=== PATIENT | male | born 1935 | race Two or more races ===

== ENCOUNTER 2024-05-24 10:27 | Outpatient (AMB) | payer MEDICARE, SELFPAY ==
--- NOTE | 2024-05-24 10:50 | HO.NEPHOV ---
Vital Signs 05/24/24 10:58 Height 5 ft 4 in Weight 193 lb BMI 33.1 BP 110/80 Blood Pressure Location Lt brachial Position Sitting Pulse 96 Pulse Source Pulse Oximeter Pulse Oximetry (%) 97 Oxygen Delivery Method Room Air Intake Visit Reasons: ENP:MIRNA-Weight gain-Leg swelling/ Conf Electron Beam Machine Welder Setter Required: No Accompanied by: Grand Child Allergies No Known Allergies Allergy (Verified 05/24/24 10:58) HPI Comments Details: Luis was seen in consultation for establishing renal care. He was accompanied by his grandson. He is known to have longstanding hypertension and had been on multiple medications including lisinopril. He has history of lymphedema and had been on hydrochlorothiazide and furosemide while taking lisinopril. He developed MIRNA and his diuretics as well as PATRICE inhibitor has been discontinued. He is known to kidney disease baseline. He denies any nausea, vomiting, diarrhea, chest pain, shortness of breath proximal dyspnea ,hemoptysis , hematemesis,, recurrent sinusitis recurrent sore throat, epistaxis, recent antibiotic intake, chronic PPI use, renal calculus, new bone or back pain. He denied taking any excessive nonsteroidal anti-inflammatories. He has history of benign prostatic hypertrophy. His blood pressure has been at goal. He is not a diabetic. He has no family history of any renal disease. After holding his diuretics and PATRICE inhibitor serum creatinine had improved. He denied any new specific systemic complaints at the time of this office visit. PENDING SALE TO [facility] Medical History (Updated 05/24/24 @ 12:17 by Capo Blas MD) Stasis dermatitis Obesity, class 1 Hypercholesteremia HTN (hypertension) Diastolic heart failure CAD (coronary artery disease) Surgical History H/O colonoscopy (~07/2013) Family History (Updated 05/24/24 @ 10:55 by Ning Kelley MA) Mother Heart disease Sister Heart disease Son Heart attack Diabetes Social History (Updated 05/24/24 @ 10:54 by Ning Kelley MA) Alcohol intake: former Patient Tobacco Use Status: Never used Tobacco Use of substances other than those prescribed or required for medical reasons: No Review of Systems Const All systems reviewed & are unremarkable except as noted in HPI and below Physical Exam Vital Signs: Last Vital Signs Pulse 96 05/24/24 10:58 BP 110/80 05/24/24 10:58 Pulse Ox 97 05/24/24 10:58 Oxygen Delivery Method Room Air 05/24/24 10:58 BMI result Body Mass Index 33.1 Const General: comfortable and no acute distress Orientation/consciousness: patient oriented x3 HEENT Head: Yes normocephalic Mouth: Normal oral and palatal mucosa present Eyes EOM: EOMs intact bilaterally Neck Neck: Yes supple Resp Auscultation: clear to auscultation bilaterally Cardio Jugular venous distension: no JVD Rate: regular rate GI Palpation (GI): Soft to palpation Auscultation: normal bowel sounds General: Yes no CVA tenderness Back/Spine/Pelvis Back: no CVA tenderness Skin General skin exam: no rashes or lesions noted Neuro General: patient oriented x3 and moves all extremities Extrem General: Yes no pedal edema Results Reviewed Nephrology Results: No Data to Display Assessment & Plan Assessment & Plan (1) HTN (hypertension): Code(s): I10 - Essential (primary) hypertension Category: Medical Qualifiers: Hypertension type: primary hypertension Qualified Code(s): I10 - Essential (primary) hypertension (2) CKD stage 3a, 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 He has history of BPH but denies any urinary symptoms. He had been taking Lasix, hydrochlorothiazide along with lisinopril, during which he developed MIRNA which has resolved after discontinuation of all those medications. He likely had tubular injury at that time. There is no reason to suspect any AIN or an GN. I have ordered workup including imaging studies. I did not make any medication changes today but shall be following him with the data for further optimization of his medication regimen. All his and his grandson's questions were answered. Follow-up appointment given Orders: Orders Electrolytes 2 Months I10 - Essential (primary) hypertension, N18.31 - Chronic kidney disease, stage 3a Complete Blood Count Auto Diff 2 Months I10 - Essential (primary) hypertension, N18.31 - Chronic kidney disease, stage 3a Protein Creatinine Ratio, Ur 2 Months I10 - Essential (primary) hypertension, N18.31 - Chronic kidney disease, stage 3a Myeloperoxidase Antibody 2 Months I10 - Essential (primary) hypertension, N18.31 - Chronic kidney disease, stage 3a Proteinase 3 PR3 Antibodies 2 Months I10 - Essential (primary) hypertension, N18.31 - Chronic kidney disease, stage 3a Phospholipase A2 Receptor Pnl 2 Months I10 - Essential (primary) hypertension, N18.31 - Chronic kidney disease, stage 3a US renal BI 2 Months I10 - Essential (primary) hypertension, N18.31 - Chronic kidney disease, stage 3a Blood Urea Nitrogen 2 Months I10 - Essential (primary) hypertension, N18.31 - Chronic kidney disease, stage 3a Creatinine 2 Months I10 - Essential (primary) hypertension, N18.31 - Chronic kidney disease, stage 3a Calcium 2 Months I10 - Essential (primary) hypertension, N18.31 - Chronic kidney disease, stage 3a Immunofixation Pnl, Serum 2 Months I10 - Essential (primary) hypertension, N18.31 - Chronic kidney disease, stage 3a Complement C3 2 Months I10 - Essential (primary) hypertension, N18.31 - Chronic kidney disease, stage 3a Complement C4 2 Months I10 - Essential (primary) hypertension, N18.31 - Chronic kidney disease, stage 3a Hepatitis B Core Antibody 2 Months I10 - Essential (primary) hypertension, N18.31 - Chronic kidney disease, stage 3a Hepatitis C Antibody Reflex 2 Months I10 - Essential (primary) hypertension, N18.31 - Chronic kidney disease, stage 3a US renal doppler 2 Months I10 - Essential (primary) hypertension, N18.31 - Chronic kidney disease, stage 3a Coding Level of Care Code New Pt Level 4 (10508) Diagnoses Primary hypertension I10 Hypertension type: primary hypertension CKD stage 3a, GFR 45-59 ml/min N18.
[2024-05-24 10:58] VITALS: BP 110/80; PULSE 96; O2SAT 97; BMI 33.1
== END 2024-05-24 12:08 | disposition home or self-care (01) ==
PROVIDERS: PCP Physician Assistant; Visit Provider Internal Medicine Nephrology
DX: I10 Essential (primary) hypertension (principal); N18.31 Chronic kidney disease, stage 3a
CPT/HCPCS: 99204

== ENCOUNTER → 2024-05-24 10:27 | Outpatient (BNVA) | payer MEDICARE, SELFPAY | PROVIDERS: PCP Physician Assistant; Visit Provider Internal Medicine Nephrology | DX: I12.9 Hypertensive chronic kidney disease with stage 1 through stage 4 chronic kidney disease, or unspecified chronic kidney disease (principal); N18.31 Chronic kidney disease, stage 3a; Z79.899 Other long term (current) drug therapy | CPT/HCPCS: 99202 ==

== ENCOUNTER 2024-08-14 09:22 | Outpatient (REF) | payer MEDICARE, SELFPAY ==
--- OUTSIDE RECORDS SUMMARY | 2024-08-14 11:03 | XMS_ITS | Clinical Summary ---
Author Organization [facility], Address [address] [place] [address] [place] [address] Phone Care Team Providers Care Cd Reactor Operator Name Role Phone Carlos Eran Primary Care Provider [phone] Allergies No known active allergies Medications amLODIPine [...] Visit [facility], [address] [place] [address] Charles Kay MD [address] [place] [address] Health Maintenance Due Date Last Done Comments Influenza Vaccine (#1) 2024 3, 01/25/2018, 03/04/2016, Additional history exists Pneumococcal Vaccine: 65+ Years Completed 05/07/2015, 06/30/2012 Hepatitis B Vaccine Aged Out No longe r eligible based on patient's age to complete this topic Insurance [employer]ET[employer] MCR ADV PPO ([id number]) Care Teams Cd Reactor Operator Relationship Specialty Start Date End Date Eran Gonzalez [address] [place] [id number] [facility] - General 12/02/23
--- OUTSIDE RECORDS SUMMARY | 2024-08-14 11:03 | XMS_ITS | Clinical Summary ---
Author Organization [facility] ity Address [address] [place] [address] Care Team Providers Care Mixing Roll Operator Name Role Phone Marc Madrigal Primary Care Provider [phone] Social History Tobacco Use Types Packs/Day Years [...] age to complete this topic Care Teams Mixing Roll Operator Relationship Specialty Start Date End Date Marc Madrigal PA [address] [place] [address] PCP - General 01/13/22
--- OUTSIDE RECORDS SUMMARY | 2024-08-14 11:04 | XMS_ITS | Encounter Summary ---
Author Organization [facility], Address [address] [place] [address] Phone Care Team Providers Care Teacher Counselor Name Role Phone Eran Gonzalez Primary Care Provider [phone] Encounter Details Date Type Department Care Team (Late st Contact Info) Description 12/02/2023 Documentation Only [facility] [address] [place] [id number] [place] [address] [place] [address] Social History Tobacco Use Types [...] Visit [facility] [address] [place] [address] Charles Kay MD [address] [facility] [place] [address] documented as of this encounter Visit Diagnoses Not on filedocumented in this encounter Care Teams Teacher Counselor Relationship Specialty Start Date End Date Eran Gonzalez [address] [place] [address] PCP - General 12/02/23 documented as of this encounter
[2024-08-14 18:06] LABS: MANUAL DIFF FLAG NO
[2024-08-14 18:12] LABS: Basophils Absolute Auto 0.1 X10*3/uL (0.0-0.2); Eosinophils Absolute Auto 0.2 X10*3/uL (0.0-0.4); Eosinophils Percent Auto 2.2 % (0-4); Hematocrit 33.7 % (42.0-52.0); Hemoglobin 10.7 g/dl (14.0-18.0); Imm Gran Abs Auto 0.02 X10*3/uL (0.00-0.03); Imm Gran Pct Auto 0.3 % (0.0-0.4); Lymphocytes Absolute Auto 2.6 X10*3/uL (1.2-4.9); Lymphocytes Percent Auto 33.5 % (20-40); Mean Corpuscular HGB Conc 31.8 g/dl (31.0-36.0); Mean Corpuscular Hemoglobin 29.2 pg (27.0-33.0); Mean Corpuscular Volume 91.8 fL (80.0-98.0); Mean Platelet Volume 10.9 fL (9.4-12.4); Monocytes Absolute Auto 0.7 X10*3/uL (0.1-1.2); Monocytes Percent Auto 9.3 % (2-11); Neutrophils Absolute Auto 4.2 x10*3/uL (2.0-8.3); Neutrophils Percent Auto 53.7 % (45-73); Platelet Count 181 X10*3/uL (160-400); Red Blood Count 3.67 X10*6/uL (4.60-5.80); Red Cell Distribution Width 15.7 % (11.0-16.0); White Blood Count 7.8 X10*3/uL (4.8-10.8)
[2024-08-14 18:33] LABS: Creatinine Urine 79.01 mg/dL; Protein/Creatinine Ratio, Ur 0.14 (<0.2); Total Protein Urine Random 11 mg/dL (<12)
[2024-08-14 18:33] LABS: Anion Gap 13 (12-20); Blood Urea Nitrogen 63 mg/dL (9-16); Calcium 9.3 mg/dL (8.4-10.2); Carbon Dioxide 23 mmol/L (22-29); Chloride 109 mmol/L (96-108); Estimated Glomerular Filt Rate 33; Potassium 4.4 mmol/L (3.3-5.1); Sodium 141 mmol/L (135-145)
[2024-08-15 08:56] LABS: HBc Num1 0.18 S/CO (0.00-0.79); Hepatitis B Core Antibody Nonreactive (Nonreactive); ~HepC Num1 0.12 S/CO (0.00-0.79); ~Hepatitis C Antibody Nonreactive (Nonreactive)
[2024-08-15 13:53] LABS: Complement C3 142 mg/dL
[2024-08-15 14:48] LABS: IgA 422 mg/dL (70-320); IgG 1144 mg/dL (600-1540); IgM 55 mg/dL (50-300)
[2024-08-17 17:14] LABS: Myeloperoxidase Antibody <1.0 AI; Proteinase 3 PR3 Antibodies <1.0 AI
[2024-08-22 01:23] LABS: Phospholipase A2 IgG ELISA <4 RU/mL; Phospholipase A2 IgG IFA NEGATIVE (NEGATIVE)
== END 2024-08-14 09:23 | disposition home or self-care (01) ==
LOC: HO.HKASLDS 09:22
PROVIDERS: Visit Provider Internal Medicine Nephrology
DX: I12.9 Hypertensive chronic kidney disease with stage 1 through stage 4 chronic kidney disease, or unspecified chronic kidney disease (principal); N18.31 Chronic kidney disease, stage 3a
CPT/HCPCS: 36415; 80051; 82310; 82565; 82570; 82784; 83520; 84156; 84520; 85025; 86021; 86160; 86255; 86334; 86704; 86803; 99212

== ENCOUNTER 2024-08-14 09:22 | Outpatient (AMB) | payer MEDICARE, SELFPAY ==
--- NOTE | 2024-08-14 09:30 | HO.NEPHOV_ITS ---
Vital Signs 08/14/24 09:33 Height 5 ft 4 in Weight 184 lb 8 oz BMI 31.7 BP 100/60 Blood Pressure Location Lt brachial Position Sitting Pulse 78 Pulse Source Pulse Oximeter Pulse Oximetry (%) 97 Oxygen Delivery Method Room Air Intake Visit Reasons: CKD/ 2 MO FU/ LVM Financial Services Consultant Required: Yes Financial Services Consultant Language: Engraver Apprentice Decorative Services: Financial Services Consultant Offered & Declined ([facility] operating systems specialist services refused ) Accompanied by: Grand Child Allergies No Known Allergies Allergy (Verified 08/14/24 09:32) HPI Comments Details: Luis was seen in follow up of his CKD. He was accompanied by his grandson. He is known to have longstanding hypertension and had been on multiple medications including lisinopril. He has history of lymphedema and had been on hydrochlorothiazide and furosemide while taking lisinopril. He developed MIRNA and his diuretics as well as PATRICE inhibitor has been discontinued. He is known to have kidney disease at baseline. He denies any nausea, vomiting, diarrhea, chest pain, shortness of breath proximal dyspnea ,hemoptysis , hematemesis,, recurrent sinusitis recurrent sore throat, epistaxis, recent antibiotic intake, chronic PPI use, renal calculus, new bone or back pain. He denied taking any excessive nonsteroidal anti-inflammatories. He has history of benign prostatic hypertrophy. His blood pressure has been at goal. He is not a diabetic. He has no family history of any renal disease. He denied any new specific systemic complaints at the time of this office visit. [facility] Medical History (Updated 05/24/24 @ 12:17 by Capo Blas MD) Stasis dermatitis Obesity, class 1 Hypercholesteremia HTN (hypertension) Diastolic heart failure CAD (coronary artery disease) Surgical History H/O colonoscopy (~07/2013) Family History Mother Heart disease Sister Heart disease Son Heart attack Diabetes Social History Alcohol intake: former Patient Tobacco Use Status: Never used Tobacco Review of Systems Const All systems reviewed & are unremarkable except as noted in HPI and below Physical Exam Const General: comfortable and no acute distress Orientation/consciousness: patient oriented x3 HEENT Head: Yes normocephalic Mouth: Normal oral and palatal mucosa present Eyes EOM: EOMs intact bilaterally Neck Neck: Yes supple Resp Auscultation: clear to auscultation bilaterally Cardio Jugular venous distension: no JVD Rate: regular rate GI Palpation (GI): Soft to palpation Auscultation: normal bowel sounds General: Yes no CVA tenderness Back/Spine/Pelvis Back: no CVA tenderness Skin General skin exam: no rashes or lesions noted Neuro General: patient oriented x3 and moves all extremities Extrem General: Yes no pedal edema Results Reviewed Nephrology Results: No Data to Display Assessment & Plan Assessment & Plan (1) CKD stage 3a, GFR 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 He has history of BPH but denies any urinary symptoms. He had been taking Lasix, hydrochlorothiazide along with lisinopril, during which he developed MIRNA which has resolved after discontinuation of all those medications. He likely had tubular injury at that time. There is no reason to suspect any AIN or an GN. I have ordered workup including imaging studies which he is going to do today. I did not make any medication changes today but shall be following him with the data for further optimization of his medication regimen. All his and his grandson's questions were answered. 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
[2024-08-14 09:33] VITALS: BP 100/60; PULSE 78; O2SAT 97; BMI 31.7
--- OUTSIDE RECORDS SUMMARY | 2024-08-14 10:21 | XMS_ITS | Clinical Summary ---
Author Organization [facility] ity Address [address] [place] [address] Care Team Providers Care Funeral Counselor Name Role Phone Marc Madrigal Primary Care Provider [phone] Social History Tobacco Use Types Packs/Day Years Used Date Smoking Tobacco: Never Smokeless Tobacco: Never Alcohol Use Standard Drinks/Week Comments Yes 1 (1 standard drink = 0.6 oz pur e alcohol) Sex and Gender Information Value Date Recorded Sex Assigned at Not on file Legal Sex Male 3:00 AM EST Gender Identity Not on file Sexual Orientation Not on file Obstetrics History Last Filed Vital Signs Vital Sign Reading Time Taken Comments Blood Pressure 153/78 07/15/2022 3:22 PM EST L A rm Pulse 80 07/15/2022 3:22 PM EST Temperature - - Respiratory Rate - - Oxygen Saturation - - Inhaled Oxygen Concentration - - Weight 83.9 kg (185 lb) 07/15/2022 3:22 PM EST Height 167.6 cm (5' 6 ) 07/15/2022 3:22 PM EST Body Mass Index 29.86 07/15/2022 3:22 PM EST Plan of Treatment Health Maintenance Due Date Last Done Comments DTaP,Tdap,and Td Vaccines (1 - Tdap) 1954 Pneumococcal Vaccine: 50+ Ye ars (1 of 1 - PCV) 08/29/1987 Zoster Vaccines (1 of 2) 08/29/1987 RSV Immunization Patients 60 + Years Old (1 - 1-dose 75+ series) 2012 Cholesterol Screening (Lipid Panel) 06/11/2022 Depression Screening 06/11/2022 Falls Risk Assessment 06/11/2022 Hypertension/CHF/CAD Annual BMP Blood Test 06/11/2022 Social Influencers of Health Screening 06/11/2022 COVID-19 Vaccine (1 - 2023-2 5 season) 2024 Influenza Vaccine (#1) 2024 HIB Vaccines Aged Out No longer eligi ble based on patient's age to complete this topic HPV Vaccines Aged Out No longer eligi ble based on patient's age to complete this topic Hepatitis A Vaccines Aged Out No long er eligible based on patient's age to complete this topic Hepatitis B Vaccines Aged Out No long er eligible based on patient's age to complete this topic IPV Vaccines Aged Out No longer eligi ble based on patient's age to complete this topic MMR Vaccines Aged Out No longer eligi ble based on patient's age to complete this topic Meningococcal ACWY Vaccine Aged Out N o longer eligible based on patient's age to complete this topic Meningococcal B Vacine Aged Out No lo nger eligible based on patient's age to complete this topic RSV Immunization Patients Un consuelo 20 months Aged Out No longer eligible b ased on patient's age to complete this topic Varicella Vaccines Aged Out No longer eligible based on patient's age to complete this topic Care Teams Funeral Counselor Relationship Specialty Start Date End Date Marc Madrigal PA [address] [place] [address] PCP - General 01/13/22
--- OUTSIDE RECORDS SUMMARY | 2024-08-14 10:21 | XMS_ITS | Clinical Summary ---
Author Organization [facility], Address [address] [place] [address] [place] [address] Phone Care Team Providers Care Mercury Cell Cleaner Name Role Phone Carlos Eran Primary Care Provider [phone] Allergies No known active allergies Medications amLODIPine (NORVASC) 2.5 MG tablet Take 2.5 mg by mouth 1 (one) time each day 02/06/2024 Active Aspirin Low Dose 81 MG EC tablet Take 81 mg by mouth 1 (one) time each day Active atorvastatin (LIPITOR) 40 MG tablet Take 40 mg by mouth 1 (one) time each day in the evening Active Multiple Vitamin (Daily-Brice Multivitamin) tablet Take 1 tablet by mouth 1 (one) time each day with food 02/06/2024 Active torsemide (DEMADEX) 20 MG tablet Take 1 tablet (20 mg total) by mouth 1 (one) time each day 30 tablet 11 02/15/2024 Active furosemide (LASIX) 40 MG tablet Take 40 mg by mouth 1 (one) time each day 04/16/2024 Active hydroCHLOROthia zide (HYDRODIURIL) 50 MG tablet Take 50 mg by mouth 1 (one) time each day 04/16/2024 Active lisinopril 20 MG tablet Take 20 mg by mouth 1 (one) time each day 04/16/2024 Active Active Problems Problem Noted Date Diagnosed Date Hypertensive disorder 02/15/2024 Immunizations Name Administration Dates Next Due Influenza, Unspecified 03/31/2023,2017,03/04/2016,05/07/2015 ,06/26/2013 Pfizer SARS-COV-2 12/18/2020,11/25/2020 Pneumococcal Conjugate 13-Valent 05/07/2015 Pneumococcal Polysaccharide 06/30/2012 Shingrix 05/11/2023 Tdap 05/11/2023,03/27/2012 Social History Tobacco Use Types Packs/Day Years Used Date Smoking Tobacco: Never Assessed Sex and Gender Information Value Date Recorded Sex Assigned at Not on file Legal Sex Male 2:35 PM EDT Gender Identity Not on file Sexual Orientation Not on file Plan of Treatment Upcoming Encounters Date Type Department Care Team (Late st Contact Info) Description 12/03/2024 2:30 PM EDT Office Visit [facility], [address] [place] [address] Charles Kay MD [address] [place] [address] Health Maintenance Due Date Last Done Comments Influenza Vaccine (#1) 2024 3, 01/25/2018, 03/04/2016, Additional history exists Pneumococcal Vaccine: 65+ Years Completed 05/07/2015, 06/30/2012 Hepatitis B Vaccine Aged Out No longe r eligible based on patient's age to complete this topic Insurance [employer]ET[employer] MCR ADV PPO ([id number]) Care Teams Mercury Cell Cleaner Relationship Specialty Start Date End Date Eran Gonzalez [address] [place] [id number] [facility] - General 12/02/23
--- OUTSIDE RECORDS SUMMARY | 2024-08-14 10:21 | XMS_ITS | Clinical Summary ---
Author Organization [facility] Address [address] [place] [address] Care Team Providers Care Nursery Hand Name Role Phone Marc Madrigal PA-C Primary Care Provider [phone] Source Comments PLEASE NOTE, if this patient is a minor, it may be UNLAWFUL to discuss sensitive information that is contained in these records (such as FAMILY PLANNING, MENTAL HEALTH or SUBSTANCE ABUSE) with the minor patient's parent or other person without the patient's specific authorization.[facility] Allergies No known active allergies Medications triamcinolone (KENALOG) 0.1 % creamIndication s:Peripheral vascular disease (HCC-CMS) Apply topically 2 (two) times daily apply twice a day for 14 days 45 g 1 02/05/20 23 Active furosemide (LASIX) 40 mg tablet Take 40 mg by mouth once daily Active atorvastatin (LIPITOR) 40 mg tabletIndicatio ns:Hypercholest eremia Take 1 Tablet by mouth nightly at bedtime 30 Tablet 3 02/05/20 23 Active lisinopriL 20 mg tabletIndicatio ns:Hypertension , unspecified type Take 1 Tablet by mouth daily. 30 Tablet 3 02/05/20 23 Active apixaban (ELIQUIS) 5 mg tabIndications: Leg DVT (deep venous thromboembolism ), acute, right (HCC-CMS) Take 1 Tablet by mouth 2 (two) times daily 60 Tablet 05/11/20 23 Active hydroCHLOROthia zide (HYDRODIURIL) 50 mg tabletIndicatio ns:Peripheral vascular disease (HCC-CMS),Hyper tension, unspecified type TAKE 1 TABLET DAILY 90 Tablet 1 01/16/20 [address] tabletIndicatio ns:Myocardial infarction, unspecified CO type, unspecified artery (HCC-CMS) TAKE 1 TABLET BY MOUTH EVERY DAY 90 Tablet 07/16/19 [address] Active aspirin [address] tabletIndicatio ns:Myocardial infarction, unspecified CO type, unspecified artery ([facility]) TAKE 1 TABLET BY MOUTH EVERY DAY 90 Tablet 06/18/20 24 025 Discontinued Active Problems Problem Noted Date Diagnosed Date Leg DVT (deep venous thrombo embolism), acute, right ([facility]) 02/07/2023 CAD (coronary artery disease) 01/06/2022 Stasis dermatitis 01/06/2022 CO (myocardial infarction) ([facility]) 01/06/2022 Overview (01/06/2022): At 50 years Hypercholesteremia 01/06/2022 Diastolic heart failure ([facility]) 01/06/2022 Immunizations Name Administration Dates Next Due TDAP 05/11/2023 ZOSTER VACCINE, RECOMBINANT (SHINGRIX) Social History Tobacco Use Types Packs/Day Years Used Date Smoking Tobacco: Never Smokeless Tobacco: Former Quit: 1956 Tobacco Cessation:Counseling Given: Yes Alcohol Use Standard Drinks/Week Comments Never 0 (1 standard drink = 0.6 oz pur e alcohol) Social Connections Answer Date Recorded Connectedness 0 03/07/2024 Financial Resource Strain Answer Date R ecorded Financial Resource Strain 0 2021 Stress Answer Date Recorded Stress 0 01/06/2022 Physical Activity Answer Date Recorded Physical Activity 0 01/06/2022 Food Insecurity Answer Date Recorded Food 0 03/15/2024 Transportation Needs Answer Date Record ed Transportation 0 01/06/2022 Housing Stability Answer Date Recorded Housing 0 01/06/2022 Safety and Environment Answer Date Ronald rded Safety 0 01/06/2022 Utilities Answer Date Recorded Utilities 0 01/06/2022 Employment Answer Date Recorded Stress 0 03/07/2024 Sex and Gender Information Value Date Recorded Sex Assigned at Male 01/06/2022 12:02 PM PDT Legal Sex Male 11:36 AM PDT Gender Identity Male 01/06/2022 12:02 PM PDT Sexual Orientation Straight 01/06/2022 12 :02 PM PDT Last Filed Vital Signs Vital Sign Reading Time Taken Comments Blood Pressure 116/80 05/11/2023 2:28 PM EST Pulse 88 05/11/2023 2:28 PM EST Temperature 36.6 ??C (97.9 ??F) 05/11/2023 2:28 PM ES T Respiratory Rate 16 05/11/2023 2:28 PM EST Oxygen Saturation 97% 03/25/2022 4:26 PM EDT Inhaled Oxygen Concentration - - Weight 83 kg (183 lb) 05/11/2023 2:28 PM EST Height 167.6 cm (5' 6 ) 05/11/2023 2:28 PM EST Body Mass Index 29.54 05/11/2023 2:28 PM EST Plan of Treatment Health Maintenance Due Date Last Done Comments Lipid Screening 1935 Tobacco Screening 1935 Advanced Care Planning 1935 Imm-Zoster, Recombinant (2 of 2) 07/06/2023 05/11/20 23 [id number] ( season) 2024 021, 11/25/2020 Imm-Influenza (#1) 2024 03/31/2023, 0 01/25/2018, 03/04/2016, Additional history exists Annual Preventive Care Visit 05/11/2024 05/11/2023 Falls Prevention 05/11/2024 05/11/2023, 01/06/2022 Alcohol and Drug Screen 06/20/2024 05/11/2023, 01/06 Depression Annual Screen 06/20/2024 05/11/2023 Imm-DTaP/Tdap/Td (3 - Td or Tdap) 05/11/2033 023, 03/27/2012 Imm-Pneumococcal 65+ Completed 05/07/2015, 06/30/19 13 Procedures Procedure Name Priority Date/Time Associated Diagnosis Comments REFERRAL SCANNED DOCUMENT 05/24/2024 3:00 AM EST from Last 3 Months Results * REFERRAL SCANNED DOCUMENT (05/24/2024 3:00 AM EST) 05/24/2024 3:00 AM EST Von CALLAHAN SCAN REFERRAL Final Result from Last 3 Months Insurance [employer] Care Teams Nursery Hand Relationship Specialty Start Date End Date Marc Madrigal PA-C [address] [place] [address] PCP - General [facility] 11/19/21
--- OUTSIDE RECORDS SUMMARY | 2024-08-14 10:21 | XMS_ITS | Encounter Summary ---
Author Organization [facility], Address [address] [place] [address] Phone Care Team Providers Care Chief Librarian Extension Department Name Role Phone Eran Gonzalez Primary Care Provider [phone] Encounter Details Date Type Department Care Team (Late st Contact Info) Description 12/02/2023 Documentation Only [facility] [address] [place] [id number] [place], [place] [address] [place] [address] Social History Tobacco Use Types Packs/Day Years Used Date Smoking Tobacco: Never Assessed Sex and Gender Information Value Date Recorded Sex Assigned at Not on file Legal Sex Male 2:35 PM EDT Gender Identity Not on file Sexual Orientation Not on file documented as of this encounter Plan of Treatment Upcoming Encounters Date Type Department Care Team (Late st Contact Info) Description 12/03/2024 2:30 PM EDT Office Visit [facility] [address] [place] [address] Charles Kay MD [address] [place] [address] documented as of this encounter Visit Diagnoses Not on filedocumented in this encounter Care Teams Chief Librarian Extension Department Relationship Specialty Start Date End Date Eran Gonzalez [address] [place] [id number] PCP - General 12/02/23 documented as of this encounter
== END 2024-08-14 09:59 | disposition home or self-care (01) ==
PROVIDERS: PCP Physician Assistant; Visit Provider Internal Medicine Nephrology
DX: N18.31 Chronic kidney disease, stage 3a (principal); I10 Essential (primary) hypertension
CPT/HCPCS: 99214

== ENCOUNTER 2024-12-07 08:32 | Outpatient (REF) | payer MEDICARE, SELFPAY ==
--- OUTSIDE RECORDS SUMMARY | 2024-12-07 08:35 | XMS_ITS | Clinical Summary ---
Author Organization [facility] Address [address] [place] [address] Care Team Providers Care Health Actuary Name Role Phone Marc Madrigal PA-C Primary Care Provider [phone] Source Comments PLEASE NOTE, if this patient is a minor, it may be UNLAWFUL to discuss sensitive information that is contained in these records (such as FAMILY PLANNING, MENTAL HEALTH or SUBSTANCE ABUSE) with the minor patient's parent or other person without the patient's specific authorization.[facility] Allergies No known active allergies Medications triamcinolone (KENALOG) 0.1 % creamIndication s:Peripheral vascular disease ([facility] V24) Apply topically 2 (two) times daily apply [...] DVT (deep venous thromboembolism ), acute, right ([facility]) Take 1 Tablet by mouth 2 (two) times daily 60 Tablet 05/11/20 23 Active hydroCHLOROthia zide (HYDRODIURIL) 50 mg tabletIndicatio ns:Peripheral vascular disease ([facility] V24),Hypertensi on, unspecified type TAKE 1 TABLET DAILY 90 Tablet 1 01/16/20 24 Active aspirin [address] tabletIndicatio ns:Myocardial infarction, unspecified [place] type, unspecified artery ([facility]) TAKE 1 TABLET BY MOUTH EVERY DAY 90 Tablet 12/03/19 25 Active aspirin [address] Estrada ns:Myocardial infarction, unspecified [place] type, unspecified artery ([facility]) TAKE 1 TABLET BY MOUTH EVERY DAY 90 Tablet 10/24/19 25 025 Discontinued Active Problems Problem Noted Date Diagnosed Date Leg DVT (deep venous thrombo embolism), acute, right ([facility]) 02/07/2023 CAD (coronary artery disease) 01/06/2022 Stasis dermatitis 01/06/2022 [place] (myocardial infarction) ([facility]) 01/06/2022 Overview (01/06/2022): At 50 years Hypercholesteremia 01/06/2022 Diastolic heart failure ([facility]) 01/06/2022 Immunizations Immunization Administration Dates Next Due TDAP 05/11/2023 ZOSTER VACCINE, RECOMBINANT (SHINGRIX) 3 Social History Tobacco Use Types Packs/Day Years [...] 88 05/11/2023 2:28 PM EST Temperature 36.6 C (97.9 F) 05/11/2023 2:28 PM EST Respiratory Rate 16 05/11/2023 2:28 PM EST [...] Recombinant (2 of 2) 07/06/2023 05/11/20 23 [id number] (2023- season) 2024 021, 11/25/2020 Annual Wellness (Adult): Indicated (All Coverage) 05/11/2024 05/11/2023 Falls Prevention 05/11/2024 05/11/2023, 01/06/2022 Alcohol and Drug Screen 06/20/2024 05/11/2023, 01/06 Depression Annual Screen 06/20/2024 05/11/2023 Imm-Influenza (Season Ended) 02/18/202505/2023, 01/25/2018, 03/04/2016, Additional history exists Imm-DTaP/Tdap/Td (3 - Td or Tdap) 05/11/2033 023, 03/27/2012 Imm-Pneumococcal 65+ Completed 05/07/2015, 06/30/19 13 Insurance [employer] Care Teams Health Actuary Relationship Specialty Start Date End Date Marc Madrigal PA-C [address] [place] [address] PCP - General FAMILY MEDICINE [facility] 11/19/21
[2024-12-07 17:45] LABS: Anion Gap 12 (12-20); Blood Urea Nitrogen 39 mg/dL (9-16); Carbon Dioxide 24 mmol/L (22-29); Chloride 107 mmol/L (96-108); Estimated Glomerular Filt Rate 29; Potassium 5.3 mmol/L (3.3-5.1); Sodium 138 mmol/L (135-145)
== END 2024-12-07 08:33 | disposition home or self-care (01) ==
LOC: HO.HKASLDS 08:32
PROVIDERS: Visit Provider Internal Medicine Nephrology
DX: N18.31 Chronic kidney disease, stage 3a (principal); I10 Essential (primary) hypertension
CPT/HCPCS: 36415; 80051; 82565; 84520

== ENCOUNTER 2024-12-11 09:38 | Outpatient (AMB) | payer MEDICARE, SELFPAY ==
[2024-12-11 09:40] VITALS: BP 120/60; PULSE 95; O2SAT 97; BMI 31.3
--- NOTE | 2024-12-11 09:40 | HO.NEPHOV_ITS ---
Vital Signs 12/11/24 09:40 Height 5 ft 4 in Weight 182 lb 6 oz BMI 31.3 BP 120/60 Blood Pressure Location Lt brachial Position Sitting Pulse 95 Pulse Source Pulse Oximeter Pulse Oximetry (%) 97 Oxygen Delivery Method Room Air Intake Visit Reasons: CKD/ 4 MO FU- Conf Intake Note: Patient here for a follow-up. Spinning And Winding Supervisor Required: No Braille And Talking Books Clerk: Braille And Talking Books Clerk Present Accompanied by: Grand Child Allergies No Known Allergies Allergy (Verified 12/11/24 09:43) Do you need a note to return to daycare/school/sports/work: No HPI Comments Details: Luis was seen in follow up of his CKD. He was accompanied by his grandson. He is known to have longstanding hypertension and had been on multiple medications including lisinopril. He has history of lymphedema and had been on hydroc hlorothiazide and furosemide while taking lisinopril. He developed MIRNA and his diuretics as well as PATRICE inhibitor has been discontinued. He is known to have kidney disease at baseline. He denies any nausea, vomiting, diarrhea, chest pain, shortness of breath proximal dyspnea ,hemoptysis , hematemesis,, recurrent sinusitis recurrent sore throat, epistaxis, recent antibiotic intake, chronic PPI use, renal calculus, new bone or back pain. He denied taking any excessive nonsteroidal anti-inflammatories. He has history of benign prostatic hypertrophy. His blood pressure has been at goal. He is not a diabetic. He has no family history of any renal disease. His serum potassium is marginally high dueing last visit. He denied any new specific systemic complaints at the time of this office visit. [facility] Medical History Stasis dermatitis Obesity, class 1 Hypercholesteremia HTN (hypertension) Diastolic heart failure CAD (coronary artery disease) Surgical History H/O colonoscopy (~07/2013) Family History Mother Heart disease Sister Heart disease Son Heart attack Diabetes Social History Alcohol intake: former Patient Tobacco Use Status: Never used Tobacco Review of Systems Const All systems reviewed & are unremarkable except as noted in HPI and below Physical Exam Vital Signs: Last Vital Signs Pulse 95 12/11/24 09:40 BP 120/60 12/11/24 09:40 Pulse Ox 97 12/11/24 09:40 Oxygen Delivery Method Room Air 12/11/24 09:40 BMI result Body Mass Index 31.3 Const General: comfortable and no acute distress Orientation/consciousness: patient oriented x3 HEENT Head: Yes normocephalic Mouth: Normal oral and palatal mucosa present Eyes EOM: EOMs intact bilaterally Neck Neck: Yes supple Resp Auscultation: clear to auscultation bilaterally Cardio Jugular venous distension: no JVD Rate: regular rate GI Palpation (GI): Soft to palpation Auscultation: normal bowel sounds General: Yes no CVA tenderness Back/Spine/Pelvis Back: no CVA tenderness Skin General skin exam: no rashes or lesions noted Neuro General: patient oriented x3 and moves all extremities Extrem General: Yes no pedal edema Results Reviewed Nephrology Results: Hgb, (14.0-18.0) 10.7 g/dl L 08/14/24 WBC, (4.8-10.8) 7.8 X10*3/uL 08/14/24 Plt Count, (160-400) 181 X10*3/uL 08/14/24 Sodium, (135-145) 138 mmol/L 12/07/24 Potassium, (3.3-5.1) 5.3 mmol/L H Δ 12/07/24 Chloride, (96-108) 107 mmol/L 12/07/24 Carbon Dioxide, (22-29) 24 mmol/L 12/07/24 BUN, (9-16) 39 mg/dL H 12/07/24 Creatinine, (0.5-1.4) 2.18 mg/dL H 12/07/24 Calcium, (8.4-10.2) 9.3 mg/dL 08/14/24 Urine Creatinine 79.01 mg/dL 08/14/24 Protein/Creatinin Ratio, (<0.2) 0.14 08/14/24 Assessment & Plan Assessment & Plan (1) CKD stage 3a, GFR 45-59 ml/min: Code(s): N18.31 - Chronic kidney disease, stage 3a Category: Medical (2) HTN (hypertension): Code(s): I10 - Essential (primary) hypertension Category: Medical Qualifiers: Hypertension type: primary hypertension Qualified Code(s): I10 - Essential (primary) hypertension Plan uLis has CKD most likely due to hypertension as well as some age-related loss of renal function. He has history of BPH but denies any urinary symptoms. He should be on low K diet. I ordered repeat blood work next month and in 3 months. I did not make any medication changes today but shall be following him with the data for further optimization of his medication regimen. All his and his grandson's questions were answered. Follow-up appointment given Orders: Orders Creatinine 3 Months I10 - Essential (primary) hypertension, N18.31 - Chronic kidney disease, stage 3a Electrolytes 3 Months I10 - Essential (primary) hypertension, N18.31 - Chronic kidney disease, stage 3a Creatinine 1 Month I10 - Essential (primary) hypertension, N18.31 - Chronic kidney disease, stage 3a Blood Urea Nitrogen 3 Months I10 - Essential (primary) hypertension, N18.31 - Chronic kidney disease, stage 3a Electrolytes 1 Month I10 - Essential (primary) hypertension, N18.31 - Chronic kidney disease, stage 3a Blood Urea Nitrogen 1 Month I10 - Essential (primary) hypertension, N18.31 - Chronic kidney disease, stage 3a Coding Level of Care Code Est Pt Level 4 (07223) Diagnoses CKD stage 3a, GFR 45-59 ml/min N18.31 Primary hypertension I10 Hypertension type: primary hypertension
--- OUTSIDE RECORDS SUMMARY | 2024-12-11 10:27 | XMS_ITS | Clinical Summary ---
Author Organization [facility] Address [address] [place] [address] Care Team Providers Care Milk Of Lime Slaker Name Role Phone Marc Madrigal PA-C Primary Care Provider [phone] Source Comments PLEASE NOTE, if this patient is a minor, it may be UNLAWFUL to discuss sensitive information that is contained in these records (such as FAMILY PLANNING, MENTAL HEALTH or SUBSTANCE ABUSE) with the minor patient's parent or other person without the patient's specific authorization.[facility] Allergies No known active allergies Medications triamcinolone (KENALOG) 0.1 % creamIndication s:Peripheral vascular disease ([facility] V[facility]) Apply topically 2 (two) [...] DVT (deep venous thromboembolism ), acute, right ([facility]) Take 1 Tablet by mouth 2 (two) times daily 60 Tablet 05/11/20 23 Active hydroCHLOROthia zide (HYDRODIURIL) 50 mg tabletIndicatio ns:Peripheral vascular disease ([facility] V[facility]),Hypertensi on, unspecified type TAKE 1 TABLET DAILY 90 Tablet 1 01/16/20 [address] aspirin [address] tabletIndicatio ns:Myocardial infarction, unspecified [place] type, unspecified artery ([facility]) TAKE 1 TABLET BY MOUTH EVERY DAY 90 Tablet 12/03/19 [address] aspirin [address] Estrada ns:Myocardial infarction, unspecified [place] type, unspecified artery ([facility]) TAKE 1 TABLET BY MOUTH EVERY DAY 90 Tablet 10/24/19 25 025 Discontinued Active Problems Problem Noted Date Diagnosed Date Leg DVT (deep venous thrombo embolism), acute, right ([facility]) 02/07/2023 CAD (coronary artery disease) 01/06/2022 Stasis dermatitis 01/06/2022 [place] (myocardial infarction) ([facility]) 01/06/2022 Overview (01/06/2022): At 50 years Hypercholesteremia 01/06/2022 Diastolic heart failure ([facility] [place]) 01/06/2022 Immunizations Immunization Administration Dates Next Due [...] Recombinant (2 of 2) 07/06/2023 05/11/20 23 [id number] (2023- season) 2024 021, 11/25/2020 Annual Wellness (Adult): Indicated (All Coverage) 05/11/2024 05/11/2023 Falls Prevention 05/11/2024 05/11/2023, 01/06/2022 Alcohol and Drug Screen 06/20/2024 05/11/2023, 01/06 Depression Annual Screen 06/20/2024 05/11/2023 Imm-Influenza (Season Ended) 02/18/202505/2023, 01/25/2018, 03/04/2016, Additional history exists Imm-DTaP/Tdap/Td (3 - Td or Tdap) 05/11/2033 023, 03/27/2012 Imm-Pneumococcal 50+ Completed 05/07/2015, 06/30/19 13 Insurance [employer] Care Teams Milk Of Lime Slaker Relationship Specialty Start Date End Date Marc Madrigal PA-C [address] [place] [address] PCP - General FAMILY MEDICINE [place] 11/19/21
== END 2024-12-11 10:01 | disposition home or self-care (01) ==
LOC: HO.HKAS 09:38
PROVIDERS: Visit Provider Internal Medicine Nephrology
DX: N18.31 Chronic kidney disease, stage 3a (principal); I10 Essential (primary) hypertension
CPT/HCPCS: 99214

== ENCOUNTER → 2024-12-11 09:38 | Outpatient (BNVA) | payer MEDICARE, SELFPAY | PROVIDERS: Visit Provider Internal Medicine Nephrology | DX: N18.31 Chronic kidney disease, stage 3a (principal); I10 Essential (primary) hypertension | CPT/HCPCS: 99212 ==

== ENCOUNTER 2025-01-08 13:08 | Outpatient (AMB) | payer MEDICARE, SELFPAY ==
--- NOTE | 2025-01-08 13:19 | HO.NEPHOV_ITS ---
Vital Signs 01/08/25 13:28 Height 5 ft 4 in Weight 178 lb 6 oz BMI 30.6 BP 114/60 Blood Pressure Location Lt brachial Position Sitting Pulse 77 Pulse Source Pulse Oximeter Pulse Oximetry (%) 98 Oxygen Delivery Method Room Air Intake Visit Reasons: 1 mnth f/u-LVM Compensation Business Partner Required: Yes Compensation Business Partner Language: [place] House Operator Services: Compensation Business Partner Offered & Declined [place] [place] Business [place] refused ) Accompanied by: Son Allergies No Known Allergies Allergy (Verified 01/08/25 13:27) HPI Comments Details: Luis was seen in follow up of his CKD. He was accompanied by his son. He is known to have longstanding hypertension and had been on multiple medications including lisinopril. He has history of lymphedema and had been on furosemide while taking lisinopril. He is known to have kidney disease at baseline. He denies any nausea, vomiting, diarrhea, chest pain, shortness of breath proximal dyspnea ,hemoptysis , hematemesis,, recurrent sinusitis recurrent sore throat, epistaxis, recent antibiotic intake, chronic PPI use, renal calculus, new bone or back pain. He denied taking any excessive nonsteroidal anti-inflammatories. He has history of benign prostatic hypertrophy. His blood pressure has been at goal. He is not a diabetic. He has no family history of any renal disease. He denied any new specific systemic complaints at the time of this office visit. [facility] Medical History Stasis dermatitis Obesity, class 1 Hypercholesteremia HTN (hypertension) Diastolic heart failure CAD (coronary artery disease) Surgical History H/O colonoscopy (~07/2013) Family History Mother Heart disease Sister Heart disease Son Heart attack Diabetes Social History Alcohol intake: former Patient Tobacco Use Status: Never used Tobacco Review of Systems Const All systems reviewed & are unremarkable except as noted in HPI and below Physical Exam Vital Signs: Last Vital Signs Pulse 77 01/08/25 13:28 BP 114/60 01/08/25 13:28 Pulse Ox 98 01/08/25 13:28 Oxygen Delivery Method Room Air 01/08/25 13:28 BMI result Body Mass Index 30.6 Const General: comfortable and no acute distress Orientation/consciousness: patient oriented x3 HEENT Head: Yes normocephalic Mouth: Normal oral and palatal mucosa present Eyes EOM: EOMs intact bilaterally Neck Neck: Yes supple Resp Auscultation: clear to auscultation bilaterally Cardio Jugular venous distension: no JVD Rate: regular rate GI Palpation (GI): Soft to palpation Auscultation: normal bowel sounds General: Yes no CVA tenderness Back/Spine/Pelvis Back: no CVA tenderness Skin General skin exam: no rashes or lesions noted Neuro General: patient oriented x3 and moves all extremities Extrem General: Yes no pedal edema Assessment & Plan Assessment & Plan (1) HTN (hypertension): Code(s): I10 - Essential (primary) hypertension Category: Medical Qualifiers: Hypertension type: primary hypertension Qualified Code(s): I10 - Essential (primary) hypertension (2) CKD stage 3a, GFR 45-59 ml/min: Code(s): N18.31 - Chronic kidney disease, stage 3a Category: Medical (3) MIRNA (acute kidney injury): Code(s): N17.9 - Acute kidney failure, unspecified Category: Medical Plan Luis has CKD most likely due to hypertension as well as some age-related loss of renal function. He has MIRNA likely due to tubular injury. He has history of BPH b ut denies any urinary symptoms. I discontinued his diuretics and lisinopril. He likely had tubular injury at that time. There is no reason to suspect any AIN or an GN. I did not make any other medication changes today but shall be following him with the data for further optimization of his medication regimen. If his serum creatinine is not settling, I plan to admit in hospital and take care of this MIRNA. F/U labs ordered & answered all questions. Follow-up appointment given Orders: Orders Blood Urea Nitrogen 5 Days I10 - Essential (primary) hypertension, N17.9 - Acute kidney failure, unspecified, N18.31 - Chronic kidney disease, stage 3a Electrolytes 5 Days I10 - Essential (primary) hypertension, N17.9 - Acute kidney failure, unspecified, N18.31 - Chronic kidney disease, stage 3a Creatinine 5 Days I10 - Essential (primary) hypertension, N17.9 - Acute kidney failure, unspecified, N18.31 - Chronic kidney disease, stage 3a Coding Level of Care Code Est Pt Level 4 (79914) Diagnoses Primary hypertension I10 Hypertension type: primary hypertension CKD stage 3a, GFR 45-59 ml/min N18.31 MIRNA (acute kidney injury) N17.9
[2025-01-08 13:28] VITALS: BP 114/60; PULSE 77; O2SAT 98; BMI 30.6
--- OUTSIDE RECORDS SUMMARY | 2025-01-08 14:11 | XMS_ITS | Encounter Summary ---
Author Organization [facility], Address [address] [place] [address] Phone Care Team Providers Care Batchmaker Name Role Phone Eran Gonzalez Primary Care Provider [phone] Encounter Details Date Type Department Care Team (Late st Contact Info) Description 11/30/2024 Documentation Only [facility], [address] [place] [address] Meka Norman [address] [place] [address] Social History Tobacco Use Types Packs/Day Years Used Date Smoking Tobacco: Never Assessed Sex and Gender Information Value Date Recorded Sex Assigned at Not on file Legal Sex Male 2:35 PM EDT Gender Identity Not on file Sexual Orientation Not on file documented as of this encounter Plan of Treatment Not on file documented as of this encounter Visit Diagnoses Not on filedocumented in this encounter Care Teams Batchmaker Relationship Specialty Start Date End Date Eran Gonzalez [address] [place] [address] PCP - General 12/02/23 documented as of this encounter
--- OUTSIDE RECORDS SUMMARY | 2025-01-08 14:11 | XMS_ITS | Clinical Summary ---
Author Organization [facility] it Address [address] [place] [address] Care Team Providers Care Packaging Supervisor Name Role Phone Marc Madrigal Primary Care Provider [phone] Social History Tobacco Use Types Packs/Day Years [...] Vaccines (1 of 2) 08/29/1987 RSV Immunization Adult Patie nts (1 - 1-dose 75+ series) 2012 Cholesterol Screening (Lipid Panel) 06/11/2022 Falls Risk Assessment 06/11/2022 Hypertension/CHF/CAD Annual BMP Blood Test 06/11/2022 Social Influencers of Health Screening 06/11/2022 COVID-19 Vaccine (1 - 2023-2 5 season) 2024 Depression Screening 06/20/2024 Influenza Vaccine (#1) 2025 HIB Vaccines Aged Out No longer eligi [...] age to complete this topic Meningococcal B Vaccine Aged Out No l onger eligible based on patient's age to complete this topic RSV Immunization Patients Un consuelo 20 months Aged Out No longer eligible b ased on patient's age to complete this topic Varicella Vaccines Aged Out No longer eligible based on patient's age to complete this topic Care Teams Packaging Supervisor Relationship Specialty Start Date End Date Marc Madrigal PA [address] [place] [address] PCP - General 01/13/22
--- OUTSIDE RECORDS SUMMARY | 2025-01-08 14:11 | XMS_ITS | Clinical Summary ---
Author Organization [facility] Address [address] [place] [address] Care Team Providers Care Senior Strategy Manager Name Role Phone Marc Madrigal PA-C Primary Care Provider [phone] Source Comments PLEASE NOTE, if this patient is a minor, it may be UNLAWFUL to discuss sensitive information that is contained in these records (such as FAMILY PLANNING, MENTAL HEALTH or SUBSTANCE ABUSE) with the minor patient's parent or other person without the patient's specific authorization.[facility] Allergies No known active allergies Medications triamcinolone (KENALOG) 0.1 % creamIndication s:Peripheral vascular disease ([facility] V24) Apply topically 2 (two) [...] DVT (deep venous thromboembolism ), acute, right ([facility]) Take 1 Tablet by mouth 2 (two) times daily 60 Tablet 05/11/20 23 Active hydroCHLOROthia zide (HYDRODIURIL) 50 mg tabletIndicatio ns:Peripheral vascular disease ([facility] [place]),Hypertensi on, unspecified type TAKE 1 TABLET DAILY 90 Tablet 1 01/16/20 [address] aspirin [address] tabletIndicatio ns:Myocardial infarction, unspecified [place] type, unspecified artery ([facility]) TAKE 1 TABLET BY MOUTH EVERY DAY 90 Tablet 12/20/19 [address] aspirin [address] Estrada ns:Myocardial infarction, unspecified [place] type, unspecified artery ([facility]) TAKE 1 TABLET BY MOUTH EVERY DAY 90 Tablet 12/03/19 25 025 Discontinued Active Problems Problem Noted Date Diagnosed Date Leg DVT (deep venous thrombo embolism), acute, right ([facility]) 02/07/2023 CAD (coronary artery disease) 01/06/2022 Stasis dermatitis 01/06/2022 [place] (myocardial infarction) ([facility]) 01/06 Overview (01/06/2022): At 50 years Hypercholesteremia 01/06/2022 Diastolic heart failure ([facility]) 01/07/20 Immunizations Immunization Administration Dates Next Due TDAP [...] Tobacco Screening 1937 [facility] 1935 Imm-RSV (adult) (1 - 1-dose 75+ series) 2012 Imm-Zoster, Recombinant (2 of 2) 07/06/2023 05/11/20 23 [id number] (3 2023- season) 2024 021, 11/25/2020 Annual Wellness (Adult): Indicated (All Coverage) 05/11/2024 05/11/2023 Falls Prevention 05/11/2024 05/11/2023, 01/06/2022 Alcohol and Drug Screen 06/20/2024 05/11/2023, 01/06 Depression Annual Screen 06/20/2024 05/11/2023 Imm-Influenza (#1) 2025 03/31/2023, 0 01/25/2018, 03/04/2016, Additional history exists Imm-DTaP/Tdap/Td (3 - Td or Tdap) 05/11/2033 023, 03/27/2012 Imm-Pneumococcal 50+ Completed 05/07/2015, 06/30/19 13 Insurance [employer] [place] [employer] Care Teams Senior Strategy Manager Relationship Specialty Start Date End Date Marc Madrigal PA-C [address] [place] [address] PCP - General FAMILY MED[facility]IN[facility] 11/19/21
== END 2025-01-08 14:38 | disposition home or self-care (01) ==
LOC: HO.HKAS 13:08
PROVIDERS: Visit Provider Internal Medicine Nephrology
DX: I10 Essential (primary) hypertension (principal); N18.31 Chronic kidney disease, stage 3a; N17.9 Acute kidney failure, unspecified
CPT/HCPCS: 99214

== ENCOUNTER → 2025-01-08 13:08 | Outpatient (BNVA) | payer MEDICARE, SELFPAY | PROVIDERS: Visit Provider Internal Medicine Nephrology | DX: I10 Essential (primary) hypertension (principal); N18.31 Chronic kidney disease, stage 3a; N17.9 Acute kidney failure, unspecified | CPT/HCPCS: 99212 ==

== ENCOUNTER 2025-01-14 09:08 | Outpatient (REF) | payer MEDICARE, SELFPAY ==
--- OUTSIDE RECORDS SUMMARY | 2025-01-14 09:48 | XMS_ITS | Clinical Summary ---
Author Organization [facility] it Address [address] [place] [address] Care Team Providers Care Salesperson New Cars Name Role Phone Marc Madrigal Primary Care Provider [phone] Social History Tobacco Use Types Packs/Day Years [...] age to complete this topic Care Teams Salesperson New Cars Relationship Specialty Start Date End Date Marc Madrigal PA [address] [place] [address] PCP - General 01/13/22
--- OUTSIDE RECORDS SUMMARY | 2025-01-14 09:48 | XMS_ITS | Encounter Summary ---
Author Organization [facility], Address [address] [place] [address] Phone Care Team Providers Care All Source Collection Manager Name Role Phone Eran Gonzalez Primary Care Provider [phone] Encounter Details Date Type Department Care Team (Late st Contact Info) Description 11/30/2024 Documentation Only [facility], [address] [place] [address] Meka Norman [address] [place] [address] Social History Tobacco Use Types [...] on filedocumented in this encounter Care Teams All Source Collection Manager Relationship Specialty Start Date End Date Eran Gonzalez [address] [place] [address] PCP - General 12/02/23 documented as of this encounter
[2025-01-14 13:44] LABS: Anion Gap 17 (12-20); Blood Urea Nitrogen 67 mg/dL (9-16); Carbon Dioxide 23 mmol/L (22-29); Chloride 106 mmol/L (96-108); Estimated Glomerular Filt Rate 26; Potassium 4.7 mmol/L (3.3-5.1); Sodium 141 mmol/L (135-145)
== END 2025-01-14 09:09 | disposition home or self-care (01) ==
LOC: HO.HKASLDS 09:08
PROVIDERS: Visit Provider Internal Medicine Nephrology
DX: I12.9 Hypertensive chronic kidney disease with stage 1 through stage 4 chronic kidney disease, or unspecified chronic kidney disease (principal); N18.31 Chronic kidney disease, stage 3a; N17.9 Acute kidney failure, unspecified
CPT/HCPCS: 36415; 80051; 82565; 84520

== ENCOUNTER 2025-01-15 14:32 | Outpatient (AMB) | payer MEDICARE, SELFPAY ==
--- NOTE | 2025-01-15 14:55 | HO.NEPHOV ---
Vital Signs 01/15/25 14:57 Height 5 ft 4 in Weight 177 lb 2 oz BMI 30.4 BP 110/70 Blood Pressure Location Lt brachial Position Sitting Pulse 81 Pulse Source Pulse Oximeter Pulse Oximetry (%) 96 Oxygen Delivery Method Room Air Intake Visit Reasons: 1wk follow up-LVM Polishing Machine Operator Required: Yes Polishing Machine Operator Language: Wildfire Prevention Specialist Services: Polishing Machine Operator Offered & Declined ([facility] Polishing Machine Operator services refused ) Accompanied by: Grand Child Allergies No Known Allergies Allergy (Verified 01/15/25 14:56) HPI Comments Details: Luis was seen in follow up of his MIRNA on CKD. He was accompanied by his grandson. He is known to have longstanding hypertension and had been on multiple medications including lisinopril. He has history of lymphedema and had been on furosemide while taking lisinopril, both of which has been hold due to MIRNA. He is known to have kidney disease at baseline. He denies any nausea, vomiting, diarrhea, chest pain, shortness of breath proximal dyspnea ,hemoptysis , hematemesis,, recurrent sinusitis recurrent sore throat, epistaxis, recent antibiotic intake, chronic PPI use, renal calculus, new bone or back pain. He denied taking any excessive nonsteroidal anti-inflammatories. He has history of benign prostatic hypertrophy. His blood pressure has been at goal. He is not a diabetic. He has no family history of any renal disease. He denied any new specific systemic complaints at the time of this office visit. [facility] Medical History Stasis dermatitis Obesity, class 1 Hypercholesteremia HTN (hypertension) Diastolic heart failure CAD (coronary artery disease) Surgical History H/O colonoscopy (~07/2013) Family History Mother Heart disease Sister Heart disease Son Heart attack Diabetes Social History Alcohol intake: former Patient Tobacco Use Status: Never used Tobacco Review of Systems Const All systems reviewed & are unremarkable except as noted in HPI and below Physical Exam Vital Signs: Last Vital Signs Pulse 81 01/15/25 14:57 BP 110/70 01/15/25 14:57 Pulse Ox 96 01/15/25 14:57 Oxygen Delivery Method Room Air 01/15/25 14:57 BMI result Body Mass Index 30.4 Const General: comfortable and no acute distress Orientation/consciousness: patient oriented x3 HEENT Head: Yes normocephalic Mouth: Normal oral and palatal mucosa present Eyes EOM: EOMs intact bilaterally Neck Neck: Yes supple Resp Auscultation: clear to auscultation bilaterally Cardio Jugular venous distension: no JVD Rate: regular rate GI Palpation (GI): Soft to palpation Auscultation: normal bowel sounds General: Yes no CVA tenderness Back/Spine/Pelvis Back: no CVA tenderness Skin General skin exam: no rashes or lesions noted Neuro General: patient oriented x3 and moves all extremities Extrem General: Yes no pedal edema Results Reviewed Nephrology Results: Hgb, (14.0-18.0) 10.7 g/dl L 08/14/24 WBC, (4.8-10.8) 7.8 X10*3/uL 08/14/24 Plt Count, (160-400) 181 X10*3/uL 08/14/24 Sodium, (135-145) 141 mmol/L 01/14/25 Potassium, (3.3-5.1) 4.7 mmol/L 01/14/25 Chloride, (96-108) 106 mmol/L 01/14/25 Carbon Dioxide, (22-29) 23 mmol/L 01/14/25 BUN, (9-16) 67 mg/dL H 01/14/25 Creatinine, (0.5-1.4) 2.36 mg/dL H 01/14/25 Calcium, (8.4-10.2) 9.3 mg/dL 08/14/24 Urine Creatinine 79.01 mg/dL 08/14/24 Protein/Creatinin Ratio, (<0.2) 0.14 08/14/24 Assessment & Plan Assessment & Plan (1) HTN (hypertension): Code(s): I10 - Essential (primary) hypertension Category: Medical Qualifiers: Hypertension type: primary hypertension Qualified Code(s): I10 - Essential (primary) hypertension (2) CKD stage 3a, GFR 45-59 ml/min: Code(s): N18.31 - Chronic kidney disease, stage 3a Category: Medical (3) MIRNA (acute kidney injury): Code(s): N17.9 - Acute kidney failure, unspecified Category: Medical Plan Luis has CKD most likely due to hypertension as well as some age-related loss of renal function. He had MIRNA likely due to tubular injury which has improved after holding ACEI and diuretics. He has history of BPH but denies any urinary symptoms. There is no reason to suspect any AIN or an GN. I did not make any other medication changes today but shall be following him with the data for further optimization of his medication regimen. F/U labs ordered & answered all questions. Follow-up appointment given Orders: Orders Electrolytes 1 Month I10 - Essential (primary) hypertension, N17.9 - Acute kidney failure, unspecified, N18.31 - Chronic kidney disease, stage 3a Creatinine 1 Month I10 - Essential (primary) hypertension, N17.9 - Acute kidney failure, unspecified, N18.31 - Chronic kidney disease, stage 3a Blood Urea Nitrogen 1 Month I10 - Essential (primary) hypertension, N17.9 - Acute kidney failure, unspecified, N18.31 - Chronic kidney disease, stage 3a Coding Level of Care Code Est Pt Level 4 (72502) Diagnoses Primary hypertension I10 Hypertension type: primary hypertension CKD stage 3a, GFR 45-59 ml/min N18.31 MIRNA (acute kidney injury) N17.9
[2025-01-15 14:57] VITALS: BP 110/70; PULSE 81; O2SAT 96; BMI 30.4
--- OUTSIDE RECORDS SUMMARY | 2025-01-15 15:13 | XMS_ITS | Clinical Summary ---
Author Organization [facility] Address [address] [place] [address] Care Team Providers Care Industrial Cleaning Technician Name Role Phone Marc Madrigal PA-C Primary Care Provider [phone] Source Comments PLEASE NOTE, if this patient is a minor, it may be UNLAWFUL to discuss sensitive information that is contained in these records (such as FAMILY PLANNING, MENTAL HEALTH or SUBSTANCE ABUSE) with the minor patient's parent or other person without the patient's specific authorization.[facility] Allergies No known active allergies Medications triamcinolone (KENALOG) 0.1 % creamIndication s:Peripheral vascular disease ([facility] V24) Apply topically 2 (two) [...] DVT (deep venous thromboembolism ), acute, right ([facility]) Take 1 Tablet by mouth 2 (two) times daily 60 Tablet 05/11/20 23 Active hydroCHLOROthia zide (HYDRODIURIL) 50 mg tabletIndicatio ns:Peripheral vascular disease ([facility] V24),Hypertensi on, unspecified type TAKE 1 TABLET DAILY 90 Tablet 1 01/16/20 24 Active aspirin [address] tabletIndicatio ns:Myocardial infarction, unspecified [place] type, unspecified artery ([facility]) TAKE 1 TABLET BY MOUTH EVERY DAY 90 Tablet 12/20/19 25 Active aspirin [address] Estrada ns:Myocardial infarction, unspecified [place] type, unspecified artery ([facility]) TAKE 1 TABLET BY MOUTH EVERY DAY 90 Tablet 12/03/19 25 025 Discontinued Active Problems Problem Noted Date Diagnosed Date Leg DVT (deep venous thrombo embolism), acute, right ([facility]) 02/07/2023 CAD (coronary artery disease) 01/06/2022 Stasis dermatitis 01/06/2022 RI (myocardial infarction) ([facility]) 01/06 Overview (01/06/2022): At 50 years Hypercholesteremia 01/06/2022 Diastolic heart failure ([facility]) 01/07/20 Immunizations Immunization Administration Dates Next [...] Recombinant (2 of 2) 07/06/2023 05/11/20 23 [id number] (3 2023- season) 2024 021, 11/25/2020 Annual Wellness (Adult): Indicated (All Coverage) 05/11/2024 05/11/2023 Falls Prevention 05/11/2024 05/11/2023, 01/06/2022 Alcohol and Drug Screen 06/20/2024 05/11/2023, 01/06 Depression Annual Screen 06/20/2024 05/11/2023 Imm-Influenza (#1) 2025 03/31/2023, 0 01/25/2018, 03/04/2016, Additional history exists Imm-DTaP/Tdap/Td (3 - Td or Tdap) 05/11/2033 023, 03/27/2012 Imm-Pneumococcal 50+ Completed 05/07/2015, 06/30/19 13 Insurance [employer] [place] [employer] Care Teams Industrial Cleaning Technician Relationship Specialty Start Date End Date Marc Madrigal PA-C [address] [place] [address] PCP - General [facility] 11/19/21
--- OUTSIDE RECORDS SUMMARY | 2025-01-15 15:13 | XMS_ITS | Encounter Summary ---
Author Organization [facility], Address [address] [place] [address] Phone Care Team Providers Care Rn Assessment Name Role Phone Eran Gonzalez Primary Care Provider [phone] Encounter Details Date Type Department Care Team (Late st Contact Info) Description 11/30/2024 Documentation Only [facility], [address] [place] [address] Meka Norman [address] [place] [address] Social History Tobacco Use Types [...] on filedocumented in this encounter Care Teams Rn Assessment Relationship Specialty Start Date End Date Eran Gonzalez [address] [place] [id number] PCP - General 12/02/23 documented as of this encounter
--- OUTSIDE RECORDS SUMMARY | 2025-01-15 15:13 | XMS_ITS | Clinical Summary ---
Author Organization [facility] it Address [address] [place] [address] Care Team Providers Care Power Brake Rebuilder Name Role Phone Marc Madrigal Primary Care Provider [phone] Social History Tobacco Use Types Packs/Day Years [...] age to complete this topic Care Teams Power Brake Rebuilder Relationship Specialty Start Date End Date Marc Madrigal PA [address] [place] [address] PCP - General 01/13/22
== END 2025-01-15 15:15 | disposition home or self-care (01) ==
LOC: HO.HKAS 14:32
PROVIDERS: Visit Provider Internal Medicine Nephrology
DX: I10 Essential (primary) hypertension (principal); N18.31 Chronic kidney disease, stage 3a; N17.9 Acute kidney failure, unspecified
CPT/HCPCS: 99214

== ENCOUNTER → 2025-01-15 14:32 | Outpatient (BNVA) | payer MEDICARE, SELFPAY | PROVIDERS: Visit Provider Internal Medicine Nephrology | DX: I10 Essential (primary) hypertension (principal); N18.31 Chronic kidney disease, stage 3a; N17.9 Acute kidney failure, unspecified | CPT/HCPCS: 99212 ==

== ENCOUNTER 2025-02-19 10:54 | Outpatient (REF) | payer MEDICARE, SELFPAY ==
[2025-02-19 18:15] LABS: Anion Gap 15 (12-20); Blood Urea Nitrogen 46 mg/dL (9-16); Carbon Dioxide 28 mmol/L (22-29); Chloride 102 mmol/L (96-108); Estimated Glomerular Filt Rate 27; Potassium 4.1 mmol/L (3.3-5.1); Sodium 141 mmol/L (135-145)
== END 2025-02-19 10:55 | disposition home or self-care (01) ==
LOC: HO.HKASLDS 10:54
PROVIDERS: Visit Provider Internal Medicine Nephrology
DX: I12.9 Hypertensive chronic kidney disease with stage 1 through stage 4 chronic kidney disease, or unspecified chronic kidney disease (principal); N18.31 Chronic kidney disease, stage 3a; Z79.899 Other long term (current) drug therapy
CPT/HCPCS: 36415; 80051; 82565; 84520; 99212

== ENCOUNTER 2025-02-19 10:54 | Outpatient (AMB) | payer MEDICARE, SELFPAY ==
--- NOTE | 2025-02-19 11:01 | HO.NEPHOV_ITS ---
Vital Signs 02/19/25 11:06 Height 5 ft 4 in Weight 178 lb 2 oz BMI 30.6 BP 102/62 Blood Pressure Location Lt brachial Position Sitting Pulse 87 Pulse Source Pulse Oximeter Pulse Oximetry (%) 97 Oxygen Delivery Method Room Air Intake Visit Reasons: 1mnth w labs-LVM Pump Erector Helper Required: Yes Pump Erector Helper Language: Gold Miner Blasting Services: Pump Erector Helper Offered & Declined ([facility] Pump Erector Helper services refused ) Accompanied by: Grand Child Allergies No Known Allergies Allergy (Verified 02/19/25 11:05) HPI Comments Details: Luis was seen in follow up of his MIRNA on CKD. He was accompanied by his grandson. He is known to have longstanding hypertension and had been on multiple medications including lisinopril. He has history of lymphedema and had been on furosemide while taking lisinopril, both of which has been hold due to MIRNA. He is known to have kidney disease at baseline. He denies any nausea, vomiting, diarrhea, chest pain, shortness of breath proximal dyspnea ,hemoptysis , hematemesis,, recurrent sinusitis recurrent sore throat, epistaxis, recent antibiotic intake, chronic PPI use, renal calculus, new bone or back pain. He denied taking any excessive nonsteroidal anti-inflammatories. He has history of benign prostatic hypertrophy. His blood pressure has been at goal. He is not a diabetic. He has no family history of any renal disease. His diuretics were put on hold with recurrence of edema and was restarted on diuretics by PCP. [facility] Medical History Stasis dermatitis Obesity, class 1 Hypercholesteremia HTN (hypertension) Diastolic heart failure CAD (coronary artery disease) Surgical History H/O colonoscopy (~07/2013) Family History Mother Heart disease Sister Heart disease Son Heart attack Diabetes Social History Alcohol intake: former Patient Tobacco Use Status: Never used Tobacco Review of Systems Const All systems reviewed & are unremarkable except as noted in HPI and below Physical Exam Vital Signs: Last Vital Signs Pulse 87 02/19/25 11:06 BP 102/62 02/19/25 11:06 Pulse Ox 97 02/19/25 11:06 Oxygen Delivery Method Room Air 02/19/25 11:06 BMI result Body Mass Index 30.6 Const General: comfortable and no acute distress Orientation/consciousness: patient oriented x3 HEENT Head: Yes normocephalic Mouth: Normal oral and palatal mucosa present Eyes EOM: EOMs intact bilaterally Neck Neck: Yes supple Resp Auscultation: clear to auscultation bilaterally Cardio Jugular venous distension: no JVD Rate: regular rate GI Palpation (GI): Soft to palpation Auscultation: normal bowel sounds General: Yes no CVA tenderness Back/Spine/Pelvis Back: no CVA tenderness Skin General skin exam: no rashes or lesions noted Neuro General: patient oriented x3 and moves all extremities Results Reviewed Nephrology Results: Sodium, (135-145) 141 mmol/L 01/14/25 Potassium, (3.3-5.1) 4.7 mmol/L 01/14/25 Chloride, (96-108) 106 mmol/L 01/14/25 Carbon Dioxide, (22-29) 23 mmol/L 01/14/25 BUN, (9-16) 67 mg/dL H 01/14/25 Creatinine, (0.5-1.4) 2.36 mg/dL H 01/14/25 Calcium, (8.4-10.2) 9.3 mg/dL 08/14/24 Urine Creatinine 79.01 mg/dL 08/14/24 Protein/Creatinin Ratio, (<0.2) 0.14 08/14/24 Assessment & Plan Assessment & Plan (1) CKD stage 3a, GFR 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 He had MIRNA likely due to tubular injury which has improved after holding ACEI. Her diuretics had been restarted and can continue current regime. He has history of BPH but denies any urinary symptoms. There is no reason to suspect any AIN or an GN. I did not make any other medication changes today but shall be following him with the data for further optimization of his medication regimen. F/U labs ordered & answered all questions. Follow-up appointment given Orders: Orders Blood Urea Nitrogen 2 Months I10 - Essential (primary) hypertension, N18.31 - Chronic kidney disease, stage 3a Blood Urea Nitrogen Today I10 - Essential (primary) hypertension, N18.31 - Chronic kidney disease, stage 3a Creatinine 2 Months I10 - Essential (primary) hypertension, N18.31 - Chronic kidney disease, stage 3a Electrolytes 2 Months I10 - Essential (primary) hypertension, N18.31 - Chronic kidney disease, stage 3a Electrolytes Today I10 - Essential (primary) hypertension, N18.31 - Chronic kidney disease, stage 3a Creatinine Today I10 - Essential (primary) hypertension, N18.31 - Chronic kidney disease, stage 3a Coding Level of Care Code Est Pt Level 4 (51199) Diagnoses CKD stage 3a, GFR 45-59 ml/min N18.31 Primary hypertension I10 Hypertension type: primary hypertension
[2025-02-19 11:06] VITALS: BP 102/62; PULSE 87; O2SAT 97; BMI 30.6
--- OUTSIDE RECORDS SUMMARY | 2025-02-19 12:32 | XMS_ITS | Clinical Summary ---
Author Organization [facility] Address [address] [place] [address] Care Team Providers Care Sign Writer Hand Name Role Phone Marc Madrigal PA-C Primary Care Provider [phone] Source Comments PLEASE NOTE, if this patient is a minor, it may be UNLAWFUL to discuss sensitive information that is contained in these records (such as FAMILY PLANNING, MENTAL HEALTH or SUBSTANCE ABUSE) with the minor patient's parent or other person without the patient's specific authorization.[facility] Allergies No known active allergies Medications triamcinolone (KENALOG) 0.1 % creamIndication s:Peripheral vascular disease ([facility] V24) Apply topically 2 (two) times daily [...] DVT (deep venous thromboembolism ), acute, right ([facility]) Take 1 Tablet by mouth 2 (two) times daily 60 Tablet 05/11/20 [address] aspirin [address] tabletIndicatio ns:Myocardial infarction, unspecified [place] type, unspecified artery ([facility]) TAKE 1 TABLET BY MOUTH EVERY DAY 90 Tablet 01/30/20 25 Active hydroCHLOROthia zide (HYDRODIURIL) 50 mg tabletIndicatio ns:Peripheral vascular disease ([facility] V24),Hypertensi on, unspecified type TAKE 1 TABLET BY MOUTH EVERY DAY 90 Tablet 1 01/30/20 25 Active hydroCHLOROthia zide (HYDRODIURIL) 50 mg tabletIndicatio ns:Peripheral vascular disease ([facility] V24),Hypertensi on, unspecified type TAKE 1 TABLET DAILY 90 Tablet 1 01/16/20 24 025 Discontinued aspirin [address] tabletIndicatio ns:Myocardial infarction, unspecified [place] type, unspecified artery ([facility]) TAKE 1 TABLET BY MOUTH EVERY DAY 90 Tablet 12/20/19 25 025 Discontinued Active Problems Problem Noted Date Diagnosed Date Leg DVT (deep venous thrombo embolism), acute, right ([facility]) 02/07/2023 CAD (coronary artery disease) 01/06/2022 Stasis dermatitis 01/06/2022 TN (myocardial infarction) ([facility]) 01/06 Overview (01/06/2022): At 50 years Hypercholesteremia 01/06/2022 Diastolic heart failure ([facility]) 01/07/20 22 Immunizations Immunization Administration Dates Next Due TDAP [...] Recombinant (2 of 2) 07/06/2023 05/11/20 23 Annual Wellness (Adult): Indicated (All Coverage) 05/11/2024 05/11/2023 Falls Prevention 05/11/2024 05/11/2023, 01/06/2022 Alcohol and Drug Screen 06/20/2024 05/11/2023, 01/06 Depression Annual Screen 06/20/2024 05/11/2023 [id number] ( season) 2025 021, 11/25/2020 Imm-Influenza (#1) 2025 03/31/2023, 0 01/25/2018, 03/04/2016, Additional history exists Imm-DTaP/Tdap/Td (3 - Td or Tdap) 05/11/2033 023, 03/27/2012 Imm-Pneumococcal 50+ Completed 05/07/2015, 06/30/19 13 Insurance [employer] Care Teams Sign Writer Hand Relationship Specialty Start Date End Date Marc Madrigal PA-C [address] [place] [address] PCP - General FAMILY MEDICINE [place] 11/19/21
--- OUTSIDE RECORDS SUMMARY | 2025-02-19 12:32 | XMS_ITS | Encounter Summary ---
Author Organization [facility], Address [address] [place] [address] Phone Care Team Providers Care Log Raft Worker Name Role Phone Eran Gonzalez Primary Care Provider [phone] Encounter Details Date Type Department Care Team (Late st Contact Info) Description 11/30/2024 Documentation Only [facility], [address] [place] [address] Meka Norman [address] [place] [address] Social History Tobacco Use Types [...] on filedocumented in this encounter Care Teams Log Raft Worker Relationship Specialty Start Date End Date Eran Gonzalez [address] [place] [id number] PCP - General 12/02/23 documented as of this encounter
--- OUTSIDE RECORDS SUMMARY | 2025-02-19 12:32 | XMS_ITS | Clinical Summary ---
Author Organization [facility] [address] it[address] Address [address] [place] [address] Care Team Providers Care College Sports Coach Name Role Phone Marc Madrigal Primary Care Provider [phone] Social History Tobacco Use Types Packs/Day Years [...] 06/11/2022 Social Influencers of Health Screening 06/11/2022 Depression Screening 06/20/2024 COVID-19 Vaccine (1 - 2023-2 5 season) 2025 Influenza Vaccine (#1) 2025 HIB Vaccines Aged [...] age to complete this topic Care Teams College Sports Coach Relationship Specialty Start Date End Date Marc Madrigal PA [address] [place] [address] PCP - General 01/13/22
--- OUTSIDE RECORDS SUMMARY | 2025-02-19 12:32 | XMS_ITS | Clinical Summary ---
Author Organization [facility], Address [address] [place] [address] [place] [address] Phone Care Team Providers Care Pre Fabricator Name Role Phone Carlos Gwyncuca Primary Care Provider [phone] Allergies No known active allergies Medications amLODIPine [...] Active Problems Problem Noted Date Diagnosed Date Diabetes mellitus 11/30/2024 Overview (11/30/2024): Ignore previous comment-- new diagnosis 10/2024 a1c 6.5 A1C as high as 15 in 2011, now diet controlled Hypertensive disorder 02/15/2024 Encounters Date Type Department Care Team Description 11/30/2024 Documentation Only [facility], [address] [place] [address] Meka Norman from Last 3 Months Immunizations Immunization Administration Dates Next Due Influenza, Unspecified 03/31/2023,2017,03/04/2016,05/07/2015 [...] Orientation Not on file Plan of Treatment Health Maintenance Due Date Last Done Comments Diabetes: Hemoglobin A1C 11/30/2024 Diabetes: Ophthalmology Exam 11/30/2024 Diabetes: Pedal Pulse Checked 11/30/2024 Diabetes: Sensory Foot Exam 11/30/2024 Diabetes: Visual Foot Exam 11/30/2024 Influenza Vaccine (#1) 2025 , 01/25/2018, 03/04/2016, Additional history exists Pneumococcal Vaccine: 50+ Years Completed 05/07/2015, 06/30/2012 Hepatitis B Vaccine Aged Out No longe r eligible based on patient's age to complete this topic Procedures Procedure Name Priority Date/Time Associated Diagnosis Comments MAGNESIUM Routine 01/04/2025 8:41 AM EDT URIC ACID Routine 01/04/2025 8:41 AM EDT URINE ALBUMIN / CREATININE RATIO Routine 01/04/2025 8:41 AM EDT RENAL FUNCTION PANEL Routine 01/04/2025 8:41 AM EDT URINALYSIS WITH MICROSCOPIC Routine 01/04/2025 8:41 AM EDT COMPREHENSIVE METABOLIC PANEL Routine 01/04/2025 8:41 AM EDT CBC AND DIFFERENTIAL Routine 01/04/2025 8:41 AM EDT MICROSCOPIC EXAMINATION - DO NOT USE Routine 01/04/2025 8:41 AM EDT from Last 3 Months Results * Microscopic Examination (01/04/2025 8:41 AM EDT) WBC, Urine None seen 0 - 5 /hpf [facility] RBC, Urine None seen 0 - 2 /hpf [facility] Squamous Epithelial, Urine None seen 0 - 10 /hpf [facility] Casts None seen None seen /lpf [facility] Bacteria, Urine None seen None seen/Few [facility] 01/04/2025 8:41 AM EDT 01/04/2025 Charles Kay MD LAB MICROBIOLOGY - GENERAL ORD ERABLES Final Result [facility] [address] [place] [address] * (ABNORMAL) Urine Albumin / Creatinine Ratio (01/04/2025 8:41 AM EDT) Creatinine, Ur 110.0 Not Estab. mg/dL [facility] Albumin, Urine 49.5 Not Estab. ug/mL [facility] Albumin/Creatin ine Ratio 45(H) 0 - 29 mg/g creat [facility] Comment: Normal: 0 - 29 Moderately increased: 30 - 300 Severely increased: >300 01/04/2025 8:41 AM EDT 01/04/2025 Charles Kay MD LAB URINE ORDERABLES Final Res ult [facility] [address] [place] [address] * (ABNORMAL) Urinalysis with microscopic (01/04/2025 8:41 AM EDT) Specific [place], Urine 1.015 1.005 - 1.030 [facility] pH Urine 6.0 5.0 - 7.5 [facility] Color, Urine Yellow Yellow [facility] Appearance Urine Clear Clear [facility] WBC Esterase Urine Negative Negative [facility] Protein, Ur Trace Negative/Tra ce [facility] Glucose, Ur Negative Negative [facility] [phone] Ketones, Urine Negative Negative [facility] Blood Urine 1+(A) Negative [facility] Bilirubin Urine Negative Negative [facility] Urobilinogen Urine 0.2 0.2 - 1.0 mg/dL [facility] Nitrite, Urine Negative Negative [facility] Microscopic Examination See below: [facility] Comment:Microscopic was caio cated and was performed. 01/04/2025 8:41 AM EDT 01/04/2025 Charles Kay MD LAB URINE ORDERABLES Final Res ult [facility] [address] [place] [address] * (ABNORMAL) CBC and Differential (01/04/2025 8:41 AM EDT) WBC 7.8 3.4 - 10.8 x10E3/uL [facility] RBC 3.25(L) 4.14 - 5.80 x10E6/uL [facility] Hemoglobin 9.6(L) 13.0 - 17.7 g/dL [facility] Hematocrit 30.5(L) 37.5 - 51.0 % [facility] MCV 94 79 - 97 fL [facility] MCH 29.5 26.6 - 33.0 pg [facility] MCHC 31.5 31.5 - 35.7 g/dL [facility] RDW 15.4 11.6 - 15.4 % [facility] Platelets CANCELED x10E3/uL [facility] Comment: Unable to perform an accurate platelet count due to aggregation of the platelets. Result canceled by the ancillary. Neutrophils Relative 54 Not Estab. % [facility] Lymphocytes Relative 32 Not Estab. % [facility] Monocytes 9 Not Estab. % [facility] Eosinophils Relative 4 Not Estab. % [facility] Basophils Relative 1 Not Estab. % [facility] Neutrophils Absolute 4.2 1.4 - 7.0 x10E3/uL [facility] Lymphocytes Absolute 2.5 0.7 - 3.1 x10E3/uL [facility] Monocytes Absolute 0.7 0.1 - 0.9 x10E3/uL [facility] Eosinophils Absolute 0.3 0.0 - 0.4 x10E3/uL [facility] Basophils Absolute 0.1 0.0 - 0.2 x10E3/uL [facility] Immature Granulocytes 0 Not Estab. % [facility] Immature Grans (Absolute) 0.0 0.0 - 0.1 x10E3/uL [facility] Comment: Note: [facility] Comment:Verified by microsco pic examination. 01/04/2025 8:41 AM EDT 01/04/2025 us Charles Kay MD LAB BLOOD ORDERABLES Edited Re sult - Final [facility] [address] [place] [address] * (ABNORMAL) Uric Acid (01/04/2025 8:41 AM EDT) Uric Acid 11.4(H) 3.8 - 8.4 mg/dL [facility] Comment:Therapeutic target f or gout patients: <6.0 01/04/2025 8:41 AM EDT 01/04/2025 us Charles Kay MD LAB BLOOD ORDERABLES Final Res ult Performing Organization Address City/[facility]/ZIP Co de Phone Number [facility] [address] [place] [address] * Magnesium (01/04/2025 8:41 AM EDT) Magnesium 2.0 1.6 - 2.3 mg/dL [facility] 01/04/2025 8:41 AM EDT 01/04/2025 us Charles Kay MD LAB BLOOD ORDERABLES Final [facility] [address] [place] [address] * (ABNORMAL) Renal Function Panel (01/04/2025 8:41 AM EDT) Phosphorus 4.7(H) 2.8 - 4.1 mg/dL [facility] 01/04/2025 8:4 1 AM EDT 01/04/2025 us Charles Kay MD LAB BLOOD ORDERABLES Final Res ult [facility] [address] [place] [address] * (ABNORMAL) Comprehensive Metabolic Panel (01/04/2025 8:41 AM EDT) Glucose 123(H) 70 - 99 mg/dL [facility] BUN 77(HH) 8 - 27 mg/dL [facility] Creatinine 3.92(H) 0.76 - 1.27 mg/dL [facility] eGFR CKD-EPI CR 2020 14(L) >59 mL/min/1.7 3 [facility] BUN/Creatinine Ratio 20 10 - 24 [facility] Sodium 142 134 - 144 mmol/L [facility] Potassium 5.4(H) 3.5 - 5.2 mmol/L [facility] Chloride 105 96 - 106 mmol/L [facility] Bicarbonate (CO2) 19(L) 20 - 29 mmol/L [facility] Calcium 9.1 8.6 - 10.2 mg/dL [facility] Total Protein 6.8 6.0 - 8.5 g/dL [facility] Albumin 3.9 3.7 - 4.7 g/dL [facility] Globulin 2.9 1.5 - 4.5 g/dL [facility] Total Bilirubin 0.3 0.0 - 1.2 mg/dL [facility] Alkaline Phosphatase 168(H) 44 - 121 IU/L [facility] AST (SGOT) 17 0 - 40 IU/L [facility] ALT (SGPT) 12 0 - 44 IU/L [facility] 01/04/2025 8:41 AM EDT 01/04/2025 us Charles Kay MD LAB BLOOD ORDERABLES Final Res ult [facility] [address] [place] [address] from Last 3 Months Insurance [employer] MCR Adv PPO [id number]) Care Teams Pre Fabricator Relationship Specialty Start Date End Date Eran Gonzalez [address] [place] [phone] PCP - General 12/02/23
--- OUTSIDE RECORDS SUMMARY | 2025-02-19 12:32 | XMS_ITS | Encounter Summary ---
Author Organization [facility], Address [address] [place] [address] Phone Care Team Providers Care Anthropological Linguist Name Role Phone Eran Gonzalez Primary Care Provider [phone] Encounter Details Date Type Department Care Team (Late st Contact Info) Description 12/02/2023 Documentation Only [facility], [address] [place] [address] Renate FoxSHELBY, [place] [address] [place] [phone] Social History Tobacco Use Types Packs/Day Years [...] on filedocumented in this encounter Care Teams Anthropological Linguist Relationship Specialty Start Date End Date Eran Gonzalez [address] [place] [id number] PCP - General 12/02/23 documented as of this encounter
== END 2025-02-19 11:31 | disposition home or self-care (01) ==
LOC: HO.HKAS 10:56
PROVIDERS: Visit Provider Internal Medicine Nephrology
DX: N18.31 Chronic kidney disease, stage 3a (principal); I10 Essential (primary) hypertension
CPT/HCPCS: 99214